=== PATIENT | female | born 1955 | race Caucasian/White ===

== ENCOUNTER 2016-09-16 13:31 | Outpatient (CLI) | payer OTHER ==
[2016-09-16 18:35] LABS: BILIRUBIN,URINE NEGATIVE (NEGATIVE); UA CHARGE (STRIP ONLY) YES; UR CULTURE IF IND NOT INDICATED
[2016-09-16 18:44] LABS: BASOPHILS # (AUTO) 0.1 10^3/uL (0.0-0.1); BASOPHILS % (AUTO) 0.6 %; EOSINOPHILS # (AUTO) 0.1 10^3/uL (0.0-0.7); EOSINOPHILS % (AUTO) 1.3 %; HCT - HEMATOCRIT 41.5 % (37.0-47.0); HGB - HEMOGLOBIN 13.8 g/dL (12.0-16.0); LYMPHOCYTES # (AUTO) 1.7 10^3/uL (1.5-3.5); LYMPHOCYTES % (AUTO) 16.9 %; MEAN CORPUSCULAR HEMOGLOBIN 30.1 pg (27.0-31.0); MEAN CORPUSCULAR HGB CONC 33.2 g/dL (32.0-36.0); MEAN CORPUSCULAR VOLUME 90.8 fL (81.0-99.0); MEAN PLATELET VOLUME 8.7 fL (7.9-10.8); MONOCYTES # (AUTO) 0.8 10^3/uL (0.0-1.0); MONOCYTES % (AUTO) 7.4 %; NEUTROPHILS # (AUTO) 7.6 10^3/uL (1.5-6.6); NEUTROPHILS % (AUTO) 73.8 %; NUCLEATED RED BLOOD CELLS AUTO 0.2 /100WBC; RED BLOOD COUNT 4.57 10^6/uL (4.20-5.40); RED CELL DISTRIBUTION WIDTH 13.5 % (12.0-15.0); UNCORRECTED WHITE BLOOD COUNT 10.3 x10^3/uL; WHITE BLOOD COUNT 10.3 x10^3/uL (4.8-10.8)
[2016-09-16 18:54] LABS: ALBUMIN/GLOBULIN RATIO 1.6 (1.0-2.2); BILIRUBIN,TOTAL 0.5 mg/dL (0.2-1.0); CALCIUM 9.2 mg/dL (8.5-10.3); CREATININE 0.8 mg/dL (0.4-1.0); POTASSIUM 4.6 mmol/L (3.5-5.0); TOTAL PROTEIN 6.6 g/dL (6.7-8.2)
== END 2016-09-16 13:32 | disposition home or self-care (01) ==
LOC: LAB.F 13:31
PROVIDERS: ATTEND Nurse Practitioner Family
DX: K80.00 Calculus of gallbladder with acute cholecystitis without obstruction (principal)
CPT/HCPCS: 36415; 80053; 81001; 81003; 82150; 85025; 87086

== ENCOUNTER 2017-11-09 12:01 | Outpatient (CLI) | payer OTHER ==
--- NOTE | 2017-11-09 13:10 | XRAY Report ---
Reason: ACUTE POSTERIOR R CALCANEAL PAIN Procedure Date: 11/09/2017 Accession Number: [id number] / [id number] Procedure: XR - Calcaneus RT CPT Code: FULL RESULT: EXAM: RIGHT CALCANEUS RADIOGRAPHY EXAM DATE: 11/09/2017 12:16 PM. CLINICAL HISTORY: ACUTE POSTERIOR R CALCANEAL PAIN. COMPARISON: None. TECHNIQUE: 2 views. FINDINGS: Bones: No fractures or bone lesions. Joints: No subluxations. There is a calcaneal spur at the insertion of the Achilles tendon. Soft Tissues: Normal. No soft tissue swelling. IMPRESSION: Calcaneal enthesophyte. No evidence of acute fracture. RADIA
== END 2017-11-09 12:02 | disposition home or self-care (01) ==
LOC: DI 12:01
PROVIDERS: ATTEND Podiatrist
DX: M77.31 Calcaneal spur, right foot (principal)

== ENCOUNTER 2019-11-26 13:19 | Outpatient (CLI) | payer OTHER ==
--- NOTE | 2019-11-26 15:15 | XRAY Report ---
PROCEDURE: Hip w/Pelvis 2-3V RT INDICATIONS: RT HIP PAIN TECHNIQUE: AP pelvis with lateral view(s) of the bilateral hip(s). COMPARISON: None. FINDINGS: Bones: No fractures or dislocations. Mild, symmetric joint space loss in the hips. Degenerative end plate sclerosis at the L4-5 interval. Pelvic ring appears intact. No suspicious bony lesions. Soft tissues: The visualized bowel gas pattern is normal. Lobulated peripherally calcified rounded mass in the midline and left pelvis is likely a uterine fibroid. No suspicious soft tissue calcificat ions. IMPRESSION: 1. 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 2. Moderate degenerative endplate sclerosis in the low lumbar spine. Reviewed by: Krysten Perez MD on 11/26/2019 3:13 PM PDT Approved by: Krysten Perez MD on 11/26/2019 3:13 PM PDT Station ID: [id number]
== END 2019-11-26 13:20 | disposition home or self-care (01) ==
LOC: DI.S 13:19
PROVIDERS: ATTEND Nurse Practitioner Family
DX: M16.11 Unilateral primary osteoarthritis, right hip (principal); M47.816 Spondylosis without myelopathy or radiculopathy, lumbar region

== ENCOUNTER 2021-08-17 08:00 | Outpatient (CLI) | payer OTHER ==
--- NOTE | 2021-08-17 19:07 | XRAY Report ---
PROCEDURE: Ankle 3 View LT INDICATIONS: LEFT ANKLE PAIN TECHNIQUE: 3 views of the ankle were acquired. COMPARISON: None FINDINGS: Bones: No fractures or dislocations. Ankle mortise is normally aligned. No suspicious bony lesions . Soft tissues: No tibiotalar joint effusion. Achilles tendon appears normal. IMPRESSION: No acute fracture. No osseous lesion. If symptoms and/or clinical suspicion for patholog y continue, further assessment with repeat plain films, or advanced imaging (e.g., CT, MRI, or bone s can) is recommended for further assessment. Reviewed by: Remberto Ramirez MD on 08/17/2021 7:06 PM PDT Approved by: Remberto Ramirez MD on 08/17/2021 7:06 PM PDT Station ID: [id number]
--- NOTE | 2021-08-17 19:52 | XRAY Report ---
PROCEDURE: Foot 3 View LT INDICATIONS: LEFT FOOT PAIN TECHNIQUE: 3 views of the foot were acquired. COMPARISON: None FINDINGS: Bones: No fractures or dislocations. No suspicious bony lesions. Soft tissues: No tibiotalar joint effusion. Achilles tendon appears normal. IMPRESSION: No acute fracture. No osseous lesion. If symptoms and/or clinical suspicion for pathology continue, f urther assessment with repeat plain films, or advanced imaging (e.g., CT, MRI, or bone scan) is recom mended for further assessment. Reviewed by: Remberto Ramirez MD on 08/17/2021 7:50 PM PDT Approved by: Remberto Ramirez MD on 08/17/2021 7:50 PM PDT Station ID: [id number]
== END 2021-08-17 23:59 | disposition home or self-care (01) ==
LOC: DI.S 08:00
PROVIDERS: ATTEND Physician Assistant Medical
DX: M25.572 Pain in left ankle and joints of left foot (principal); M79.672 Pain in left foot

== ENCOUNTER 2023-03-15 08:00 | Outpatient (CLI) | payer MEDICARE, OTHER | END 2023-03-15 23:59 | disposition home or self-care (01) | LOC: LAB.S 08:00 | PROVIDERS: ATTEND Physician Assistant Medical | DX: J02.9 Acute pharyngitis, unspecified (principal) | CPT/HCPCS: 87070 ==